=== PATIENT | male | born 1990 | race African-American/Black ===

== ENCOUNTER 2017-05-11 01:22 | Inpatient (IN) | payer OTHER ==
--- NOTE | 2017-05-11 02:20 | PDOC ---
History of Present Illness - General History Source: Patient Exam Limitations: No Limitations - History of Present Illness Initial Comments: 05/11/17 04:13 Patient is a 26 year old male with a significant past medical history of Cystic Fibrosis who presents to the ED with complaints of persistent cough that began 4 days ago. Patient reports persistent cough beginning last suddenly while at home. He reports persistent cough began increasing in intensity with each passing day, until Thursday afternoon. Patient states cough is productive with brown/ yellowish sputum. Patient reports taking taking steroids for Cystic Fibrosis. As per patient's , patient had 104 degree fever yesterday afternoon and was given Tylenol with minimal relief. Denies chest pain. Denies chills. Denies contact with sick individual, out of state travel. Denies any other symptoms. Allergies: Blueberry allergy, Shellfish allergy Social history: Lives with . No smoking. No alcohol. No illicit drugs. Surgical history: None PMD: None. 05/11/17 04:16 <Celso Martino - Last Filed: 05/11/17 04:16> <Akin Echeverria - Last Filed: 05/11/17 05:11> - General Chief Complaint: Respiratory Stated Complaint: SORE THROAT, WEAKNESS, COUGH Time Seen by Provider: 05/11/17 01:39 Past History <Celso Martino - Last Filed: 05/11/17 04:16> - Surgical History Appendectomy: Yes - Suicide/Smoking/Psychosocial Hx Smoking Status: Yes Smoking History: Never smoked Number of Cigarettes Smoked Daily: 4 'Breaking Loose' booklet given: 09/30/12 Hx Alcohol Use: No Drug/Substance Use Hx: Yes Substance Use Type: Marijuana Hx Substance Use Treatment: No <Akin Echeverria - Last Filed: 05/11/17 05:11> - Past Medical History Allergies/Adverse Reactions: Allergies Allergy/AdvReac Type Severity Reaction Status Date / Time blueberry [Blueberry] Allergy Swelling Verified 05/11/17 02:07 shellfish derived Allergy Swelling Verified 05/11/17 02:07 Home Medications: Ambulatory Orders NK [No Known Home Medication] 05/11/17 Review of Systems - Review of Systems Able to Perform ROS?: Yes Comments:: 05/11/17 04:13 GENERAL/CONSTITUTIONAL: +Fever No chills. No weakness. HEAD, EYES, EARS, NOSE AND THROAT: No change in vision. No ear pain or discharge. No sore throat. CARDIOVASCULAR: No chest pain or shortness of breath. RESPIRATORY: +Cough. No wheezing, or hemoptysis. GASTROINTESTINAL: No nausea, vomiting, diarrhea or constipation. GENITOURINARY: No dysuria, frequency, or change in urination. MUSCULOSKELETAL: No joint or muscle swelling or pain. No neck or back pain. SKIN: No rash NEUROLOGIC: No headache, vertigo, loss of consciousness, or change in strength/ sensation. ENDOCRINE: No increased thirst. No abnormal weight change. HEMATOLOGIC/LYMPHATIC: No anemia, easy bleeding, or history of blood clots. ALLERGIC/IMMUNOLOGIC: No hives or skin allergy. All Other Systems: Reviewed and Negative <Celso Martino - Last Filed: 05/11/17 04:16> *Physical Exam - Vital Signs Last Vital Signs Temp Pulse Resp BP Pulse Ox 98.9 F 74 20 107/54 98 05/11/17 02:07 05/11/17 02:07 05/11/17 02:07 05/11/17 02:07 05/11/17 02:07 - Physical Exam Comments: 05/11/17 04:14 GENERAL: +Appears ill. Awake, alert, and fully oriented, in no acute distress HEAD: No signs of trauma EYES: PERRLA, EOMI, sclera anicteric, conjunctiva clear ENT: Auricles normal inspection, hearing grossly normal, nares patent, oropharynx clear without exudates. Moist mucosa NECK: Normal ROM, supple, no lymphadenopathy, JVD, or masses LUNGS: Breath sounds equal, clear to auscultation bilaterally. No wheezes, and no crackles HEART: Regular rate and rhythm, normal S1 and S2, no murmurs, rubs or gallops ABDOMEN: Soft, nontender, normoactive bowel sounds. No guarding, no rebound. No masses EXTREMITIES: Normal range of motion, no edema. No clubbing or cyanosis. No cords, erythema, or tenderness NEUROLOGICAL: Cranial nerves II through XII grossly intact. Normal speech, SKIN: Warm, Dry, normal turgor, no rashes or lesions noted. <Celso Martino - Last Filed: 05/11/17 04:16> - Vital Signs Last Vital Signs Temp Pulse Resp BP Pulse Ox 98.9 F 74 20 107/54 98 05/11/17 02:07 05/11/17 02:07 05/11/17 02:07 05/11/17 02:07 05/11/17 02:07 <Akin Echeverria - Last Filed: 05/11/17 05:11> ED Treatment Course - Medications Given in the ED: ED Medications Discontinued Medications Generic Name Dose Route Start Last Admin Trade Name Sudhir PRN Reason Stop Dose Admin Albuterol Sulfate 2 amp 05/11/17 03:14 05/11/17 04:11 Ventolin 0.083% Nebulizer Soln - NEB 05/11/17 03:15 2 amp ONCE ONE Administration Albuterol/Ipratropium 1 amp 05/11/17 03:14 05/11/17 04:02 Duoneb - NEB 05/11/17 03:15 1 amp ONCE ONE Administration Ceftriaxone Sodium 1 gm/ 50 mls @ 100 mls/hr 05/11/17 02:34 05/11/17 04:11 Dextrose IVPB 05/11/17 03:03 100 mls/hr ONCE ONE Administration Methylprednisolone Sodium Succinate 125 mg 05/11/17 02:34 05/11/17 04:11 Solu-Medrol - IVPUSH 05/11/17 02:35 125 mg ONCE ONE Administration <Celso Martino - Last Filed: 05/11/17 04:16> - LABORATORY CBC & Chemistry Diagram: 05/11/17 03:56 05/11/17 03:56 <Akin Echeverria - Last Filed: 05/11/17 05:11> *DC/Admit/Observation/Transfer - Attestations Scribe Attestion: 05/11/17 04:14 Documentation prepared by Celso Martino, acting as medical insurance verifier for Akin Echeverria MD/DO. <Celso Martino - Last Filed: 05/11/17 04:16> - Discharge Dispostion Admit: Yes - Attestations Physician Attestion: 05/11/17 02:20 I, Dr. Akin Echeverria, attest that this document has been prepared under my direction and personally reviewed by me in its entirety. I further attest, that it accurately reflects all work, treatment, procedures and medical decision -making performed by me. <Akin Echeverria - Last Filed: 05/11/17 05:11> Diagnosis at time of Disposition: Cystic fibrosis Pneumonia Qualifiers: Pneumonia type: due to unspecified organism Laterality: left Lung location: lower lobe of lung Qualified Code(s): J18.1 - Lobar pneumonia, unspecified organism - Discharge Dispostion Condition at time of disposition: Improved
[2017-05-11] MEDS ORDERED: AZITHROMYCIN IVPB 500 MG in DEXTROSE 5%-WATER - 250 ML IVPB ONE (02:34)
[2017-05-11] MEDS ORDERED: methylPREDNISolone NA SUCC 125 MG/2 ML VIAL IVPUSH ONE (02:34)
[2017-05-11] MEDS ORDERED: CEFTRIAXONE 1 GM in DEXTROSE 5%-WATER - 50 ML IVPB ONE (02:34)
[2017-05-11 03:04] VITALS: BMI 22.9
[2017-05-11] MEDS ORDERED: ALBUTEROL SO4 2.5/IPRATROPIUM 0.5 INH SOL 3 ML VIAL.NEB. NEB ONE (03:14)
[2017-05-11] MEDS ORDERED: ALBUTEROL SO4 0.083% IH SOL 2.5 MG/3 ML VIAL.NEB. NEB ONE ×2 (03:14→04:05)
[2017-05-11] MEDS ORDERED: AZITHROMYCIN IVPB 250 ML IVPB ONE (04:05)
[2017-05-11] MEDS ORDERED: CEFTRIAXONE 1 GM/50 ML BAG ONE (04:05)
[2017-05-11] MEDS ORDERED: methylPREDNISolone NA SUCC 125 MG/2 ML VIAL ONE (04:05)
[2017-05-11 04:27] LABS: BASOPHIL 0.5 % (0-2.0); EOSINOPHIL 5.9 % (0-4.5); MCH 29.2 pg (25.7-33.7); MCHC 34.2 g/dl (32.0-35.9); MEAN CELL VOLUME 85.3 fl (80-96); PLATELET COUNT 244 K/MM3 (134-434); RDW 13.1 % (11.9-15.9); WHITE BLOOD COUNT 8.3 K/mm3 (4.0-10.0)
[2017-05-11 04:40] LABS: INR 1.19 (0.82-1.09); PROTHROMBIN TIME (PATIENT) 13.5 SEC (9.98-11.88)
[2017-05-11 04:52] LABS: ALBUMIN 3.8 g/dl (3.4-5.0); ANION GAP 7 (8-16); BILIRUBIN,TOTAL 0.4 mg/dL (0.2-1.0); CALCIUM 8.2 mg/dL (8.5-10.1); CO2 27 mmol/L (21-32); GLUCOSE,RANDOM 89 mg/dL (74-106); SGPT/ALT 30 U/L (12-78)
[2017-05-11 04:53] LABS: ALK PHOS 75 U/L (45-117); TOT PROT 7.2 g/dl (6.4-8.2)
[2017-05-11 04:55] LABS: SGOT/AST 36 U/L (15-37)
--- NOTE | 2017-05-11 05:08 | PN ---
Teaching Attending Note Name of Resident: Pratibha Carlos ATTENDING PHYSICIAN STATEMENT I saw and evaluated the patient. I reviewed the resident's note and discussed the case with the resident. I agree with the resident's findings and plan as documented. SUBJECTIVE: 26 M with pmhx. of CF (not on any treatment), who presents with s 4 day history of Cystic Fibrosis. Pt.s reported him with productive sputum, and bringing up yellow thick sputum. States he felt febrile at home and his temp was 104. Notes chills and fevers. No chest pain or pressure. No shortness of breath. No N/V?D. States he does not follow with a hand i tube bender and was NOT on any recent steriods. OBJECTIVE: Physical: VS: Vital Signs Period Temp Pulse Resp BP Sys/Jonas Pulse Ox Last 24 Hr 98.4 F-98.9 F 74 20 107/54 98 GEN: NAD, AA0X3, resting in bed HEENT: NCAT, PERRL, throat without erythema or exudates CARD: RRR S1, S2 RES: CTAB ABD: BX4, NTD to palparion EXR:- C/C/E CBCD WBC 8.3 K/mm3 (4.0-10.0) 05/11/17 03:56 RBC 4.98 M/mm3 (4.00-5.60) 05/11/17 03:56 Hgb 14.5 GM/dL (11.7-16.9) 05/11/17 03:56 Hct 42.5 % (35.4-49) 05/11/17 03:56 MCV 85.3 fl (80-96) 05/11/17 03:56 MCHC 34.2 g/dl (32.0-35.9) 05/11/17 03:56 RDW 13.1 % (11.9-15.9) 05/11/17 03:56 Plt Count 244 K/MM3 (134-434) D 05/11/17 03:56 MPV 8.0 fl (7.5-11.1) 05/11/17 03:56 CMP Sodium 134 mmol/L (136-145) L 05/11/17 03:56 Potassium 4.5 mmol/L (3.5-5.1) 05/11/17 03:56 Chloride 100 mmol/L (98-107) 05/11/17 03:56 Carbon Dioxide 27 mmol/L (21-32) 05/11/17 03:56 Anion Gap 7 (8-16) L 05/11/17 03:56 BUN 10 mg/dL (7-18) 05/11/17 03:56 Creatinine 1.0 mg/dL (0.7-1.3) 05/11/17 03:56 Creat Clearance w eGFR > 60 (>60) 05/11/17 03:56 Random Glucose 89 mg/dL (74-106) 05/11/17 03:56 Calcium 8.2 mg/dL (8.5-10.1) L 05/11/17 03:56 Total Bilirubin 0.4 mg/dL (0.2-1.0) D 05/11/17 03:56 AST 36 U/L (15-37) 05/11/17 03:56 ALT 30 U/L (12-78) D 05/11/17 03:56 Alkaline Phosphatase 75 U/L (45-117) D 05/11/17 03:56 Total Protein 7.2 g/dl (6.4-8.2) 05/11/17 03:56 Albumin 3.8 g/dl (3.4-5.0) 05/11/17 03:56 CXT- [place] JOSSELYN ASSESSMENT AND PLAN: 26 M with hx. of CF who presents with productive cough and fever being admitted for possible pneumonia 1.) Pneumonia? - Possible early pneumonia - Sputum cx - Urine AGS - C/W Ceftriaxone and Azithro - [place] cx 2.) Cystic Fibrosis - Not on any medication - Pulm consult for medical optimization 3.) Dvt Ppx - Ambulate - SCDs Place in Obs
--- NOTE | 2017-05-11 05:53 | HP ---
CHIEF COMPLAINT: Cough x4 days PCP: HISTORY OF PRESENT ILLNESS: A 26 yo M with a significant PMHx of Cystic Fibrosis presenting with productive cough x 4 days. Cough is productive of non- bloody yellowish-brown sputum. No associated SOB or chest pain. Patient was noted to have a Tmax of 104 relieved by motrin and theraflu. There was associated sore throat, loss of appetite, and one episode of non bloody diarrhea. There is however no dysphagia, no n/v, no constipation. Patient has also had generalized malaise and joint weakness that has not been relieved by the pain meds. Patient usually has exacerbations of CF in the winter, with his last episode 2 years ago. Patient assumed he was having flu-like symptoms and presented today because the symptoms were not improving. There is no history of sick contacts and patient has not received flu vaccine or pneumovax. Patient admits to smoking 3 cigarettes a day. ER course was notable for: (1) CBC, PT, INR, CMP-wnl (2) Na-134 (3) Lactic acid, UA--ve 4) CXR- yet to be read, likely hilar cavitory lesions on L with possible consolidation 5) Ceftriaxone 1g, Azithromycin iv 500mg, given-ED 6) Duonebs, ventolin-given Recent Travel: PAST MEDICAL HISTORY: Recurrent PNA PAST SURGICAL HISTORY: Appendectomy Nasal polypectomy Social History: Smokin/day (Black and mild) Alcohol:2 beers/ week Drugs: None Family History: Allergies blueberry [Blueberry] Allergy (Verified 05/11/17 02:07) Swelling shellfish derived Allergy (Verified 05/11/17 02:07) Swelling HOME MEDICATIONS: Home Medications Medication Instructions Recorded NK [No Known Home Medication] 05/11/17 REVIEW OF SYSTEMS CONSTITUTIONAL: Absent: fever+, chills, diaphoresis, generalized weakness, malaise, loss of appetite, weight change HEENT: Absent: rhinorrhea, nasal congestion, throat pain, throat swelling, difficulty swallowing, mouth swelling, ear pain, eye pain, visual changes CARDIOVASCULAR: Absent: chest pain, syncope, palpitations, irregular heart rate, lightheadedness , peripheral edema RESPIRATORY: Absent: cough+, shortness of breath, dyspnea with exertion, orthopnea, wheezing , stridor, hemoptysis GASTROINTESTINAL: Absent: abdominal pain, abdominal distension, nausea, vomiting, diarrhea, constipation, melena, hematochezia GENITOURINARY: Absent: dysuria, frequency, urgency, hesitancy, hematuria, flank pain, genital pain MUSCULOSKELETAL: Absent: myalgia+, arthralgia+, joint swelling, back pain, neck pain SKIN: Absent: rash, itching, pallor HEMATOLOGIC/IMMUNOLOGIC: Absent: easy bleeding, easy bruising, lymphadenopathy, frequent infections ENDOCRINE: Absent: unexplained weight gain, unexplained weight loss, heat intolerance, cold intolerance NEUROLOGIC: Absent: headache, focal weakness or paresthesias, dizziness, unsteady gait, seizure, mental status changes, bladder or bowel incontinence PSYCHIATRIC: Absent: anxiety, depression, suicidal or homicidal ideation, hallucinations. PHYSICAL EXAMINATION Vital Signs - 24 hr 05/11/17 05/11/17 02:07 05:13 Temperature 98.9 F 98.4 F Pulse Rate 74 Respiratory 20 Rate Blood Pressure 107/54 O2 Sat by Pulse 98 Oximetry (%) GENERAL: Awake, alert, and fully oriented, in no acute distress. HEAD: Normal with no signs of trauma. EYES: Pupils equal, round and reactive to light, extraocular movements intact, sclera anicteric, conjunctiva clear. EARS, NOSE, THROAT: Ears normal, nares patent, hyperemic oropharynx clear without exudates. Moist mucous membranes. NECK: Normal range of motion, supple, no lymphadenopathy, no JVD. LUNGS: Breath sounds reduced, coarse creps bilaterally. No wheezes, and no crackles. HEART: Regular rate and rhythm, normal S1 and S2 without murmur, rub or gallop. ABDOMEN: Soft, nontender, not distended, normoactive bowel sounds MUSCULOSKELETAL: Normal range of motion at all joints. UPPER EXTREMITIES: 2+ pulses, warm, well-perfused. No cyanosis. clubbing+. No peripheral edema. LOWER EXTREMITIES: 2+ pulses, warm, well-perfused. No calf tenderness. No peripheral edema. NEUROLOGICAL: Cranial nerves II-XII intact. Normal speech. gait not observed. PSYCHIATRIC: Cooperative. Good eye contact. Appropriate mood and affect. SKIN: Warm, dry, normal turgor, no rashes or lesions noted, normal capillary refill. Laboratory Results - last 24 hr 05/11/17 05/11/17 05/11/17 03:56 03:56 03:56 WBC 8.3 RBC 4.98 Hgb 14.5 Hct 42.5 MCV 85.3 MCH 29.2 MCHC 34.2 RDW 13.1 Plt Count 244 D MPV 8.0 Neutrophils % 58.0 Lymphocytes % 24.5 D Monocytes % 11.1 H D Eosinophils % 5.9 H Basophils % 0.5 PT with INR 13.50 H INR 1.19 H Sodium 134 L Potassium 4.5 Chloride 100 Carbon Dioxide 27 Anion Gap 7 L BUN 10 Creatinine 1.0 Creat Clearance w eGFR > 60 Random Glucose 89 Lactic Acid Calcium 8.2 L Total Bilirubin 0.4 D AST 36 ALT 30 D Alkaline Phosphatase 75 D Total Protein 7.2 Albumin 3.8 05/11/17 03:56 WBC RBC Hgb Hct MCV MCH MCHC RDW Plt Count MPV Neutrophils % Lymphocytes % Monocytes % Eosinophils % Basophils % PT with INR INR Sodium Potassium Chloride Carbon Dioxide Anion Gap BUN Creatinine Creat Clearance w eGFR Random Glucose Lactic Acid 0.8 Calcium Total Bilirubin AST ALT Alkaline Phosphatase Total Protein Albumin ASSESSMENT/PLAN: A 26 yo M with significant PMHx of Cystic Fibrosis ( on no home meds) presenting with hx of productive cough x 4 days and fever. #CAP In background of CF, not on home meds, last exacerbation 2 years ago CXR- likely infiltrates Ceftriaxone 1g given-ED iv normal saline 100/hr Tabs tylenol 650mg Q6H Ceftriaxone 1g-given Azithromycin iv 500mg, given-ED Duonebs-given ventolin-given Pulm consult- Dr Hackett Iv Normal saline @100ml/hr Flu vaccine im Pneumovax 13 im #Cystic fibrosis Not on home meds Pulm consult #FEN IV fluid normal saline Monitor lytes Low sodium diet #Prophylaxis DVT Early ambulation #Dispo Obs Med Surg Visit type - Emergency Visit Emergency Visit: Yes Care time: The patient presented to the Emergency Department on the above date and was hospitalized for further evaluation of their emergent condition. - New Patient This patient is new to me today: Yes Date on this admission: 05/11/17 - Critical Care Critical Care patient: No
[2017-05-11] MEDS ORDERED: ACETAMINOPHEN 325 MG TABLET (FP) PO PRN (06:29)
[2017-05-11] MEDS ORDERED: SODIUM CHLORIDE 1,000 ML IV SCH (06:30)
[2017-05-11] MEDS ORDERED: PNEUMOC 13-VAL CONJ-DIP CRM/PF 0.5 ML DISP.SYRIN IM ONE (06:35)
[2017-05-11] MEDS ORDERED: FLU VACCINE QUAD 60 MCG/0.5 ML (MDV 17-18) IM ONE (06:36)
[2017-05-11 08:43] LABS: PHOSPHOROUS 4.3 mg/dL (2.5-4.9)
--- NOTE | 2017-05-11 12:31 | PN ---
Physical Exam: SUBJECTIVE: Patient seen and examined. Diagnosed with cystic fibrosis at [facility] at age 17. Followed for a time with Dr. Bradshaw in [place], last saw her 4 years ago. Does not have a PCP. Used to use a nebulizer but it was lost. Has a percussion vest that he uses occasionally when he develops cough/URI/pneumonia. Smokes 3 cigarettes daily. Presently complaining of bilateral chest tightness on deep inspiration. OBJECTIVE: Vital Signs Period Temp Pulse Resp BP Sys/Jonas Pulse Ox Last 24 Hr 97.7 F-98.9 F 53-82 18-20 107-115/50-67 98-98 GENERAL: The patient is awake, alert, and fully oriented, in no acute distress. LUNGS: Dimninished sounds on the right. No wheezes, no crackles, no accessory muscle use. HEART: Regular rate and rhythm, S1, S2 without murmur, rub or gallop. ABDOMEN: Soft, nontender, nondistended, normoactive bowel sounds, no guarding, no rebound EXTREMITIES: 2+ pulses, warm, well-perfused, no edema. NEUROLOGICAL: Cranial nerves II through XII grossly intact. Normal speech, gait not observed. Laboratory Results - last 24 hr 05/11/17 05/11/17 05/11/17 03:56 03:56 03:56 WBC 8.3 RBC 4.98 Hgb 14.5 Hct 42.5 MCV 85.3 MCH 29.2 MCHC 34.2 RDW 13.1 Plt Count 244 D MPV 8.0 Neutrophils % 58.0 Lymphocytes % 24.5 D Monocytes % 11.1 H D Eosinophils % 5.9 H Basophils % 0.5 PT with INR 13.50 H INR 1.19 H Sodium 134 L Potassium 4.5 Chloride 100 Carbon Dioxide 27 Anion Gap 7 L BUN 10 Creatinine 1.0 Creat Clearance w eGFR > 60 Random Glucose 89 Lactic Acid Calcium 8.2 L Phosphorus 4.3 Magnesium 2.0 Total Bilirubin 0.4 D AST 36 ALT 30 D Alkaline Phosphatase 75 D Total Protein 7.2 Albumin 3.8 05/11/17 05/11/17 03:56 04:00 WBC RBC Hgb Hct MCV MCH MCHC RDW Plt Count MPV Neutrophils % Lymphocytes % Monocytes % Eosinophils % Basophils % PT with INR INR Sodium Potassium Chloride Carbon Dioxide Anion Gap BUN Creatinine Creat Clearance w eGFR Random Glucose Lactic Acid 0.8 Calcium Phosphorus Cancelled Magnesium Cancelled Total Bilirubin AST ALT Alkaline Phosphatase Total Protein Albumin Active Medications Generic Name Dose Route Start Last Admin Trade Name Freq PRN Reason Stop Dose Admin Sodium Chloride 1,000 mls @ 100 mls/hr 05/11/17 06:30 05/11/17 10:11 Normal Saline - IV 100 mls/hr ASDIR RADHA Administration ASSESSMENT/PLAN 26 year-old male with a PMH significant for cystic fibrosis, admitted for LLL pneumonia. Community-acquired pneumonia --05/11 CT chest: multifocal centrilobular groundglass and solid nodular opacities in the LLL --seen by pulmonology who diagnosed pneumonia --received ceftriaxone x 1 and azithro x 1 in ED, will start levofloxacin x 9 days --flu and pneumonia vaccines given --duonebs PRN Cystic fibrosis --stable; CT shows interval resolution of a mucoid impaction seen on 09/23/12 Visit type - Emergency Visit Emergency Visit: Yes ED Registration Date: 05/11/17 Care time: The patient presented to the Emergency Department on the above date and was hospitalized for further evaluation of their emergent condition. - New Patient This patient is new to me today: Yes Date on this admission: 05/12/17 - Critical Care Critical Care patient: No
--- NOTE | 2017-05-11 14:07 | CON.PULM ---
Consult Consult Specialty:: Pulmonology Reason for Consultation:: Cystic Fibrosis/ PNA - History of Present Illness Chief Complaint: Cough, Fever History of Present Illness: The patient is a 26 yo m w/ PMH cystic fibrosis who comes into the ED c/o cough and fever for the past 4 days. Patient states that the symptoms began with a sore throat and progressed to a cough productive of non-bloody yellowish-brown sputum. Patient also endorses a temperature to 104 relieved by motrin and theraflu. Patient states that whenever he gets sick like this, he ends up having pneumonia and needs admission, so he went to the ED for evaluation. Last hospitalization was for pneumonia 2 years ago. Patient is an active smoker of 3- 4 cigarettes per day for approximately 10 years. He does not have a PCP or a edge burnisher who he regularly follows up with. - Alcohol/Substance Use Hx Alcohol Use: No - Smoking History Smoking history: Never smoked Aproximately how many cigarettes per day: 4 Home Medications - Allergies Allergies/Adverse Reactions: Allergies Allergy/AdvReac Type Severity Reaction Status Date / Time blueberry [Blueberry] Allergy Swelling Verified 05/11/17 02:07 shellfish derived Allergy Swelling Verified 05/11/17 02:07 - Home Medications Home Medications: Ambulatory Orders NK [No Known Home Medication] 05/11/17 Review of Systems - Review of Systems Constitutional: reports: Night Sweats. denies: Chills, Fever HENT: denies: Ear Pain, Nasal Congestion, Throat Pain Cardiovascular: denies: Chest Pain, Edema, Palpitations, Shortness of Breath Respiratory: reports: Cough. denies: Hemoptysis, SOB Physical Exam Vital Sings: Vital Signs Temperature 97.7 F 05/11/17 09:45 Pulse Rate 53 L 05/11/17 09:45 Respiratory Rate 18 05/11/17 09:45 Blood Pressure 112/50 05/11/17 09:45 O2 Sat by Pulse Oximetry (%) 98 05/11/17 05:59 Constitutional: Yes: Well Nourished, No Distress, Calm HENT: Yes: Atraumatic, Normocephalic Neck: Yes: Supple, Trachea Midline Cardiovascular: Yes: Regular Rate and Rhythm, S1, S2. No: JVD, Gallop, Murmur, Rub, S3, S4 Respiratory: Yes: Regular, Other (decreased breath sounds on the right). No: Rales, Rhonchi, Wheezes Labs: CBC, BMP 05/11/17 03:56 05/11/17 03:56 Assessment/Plan Patient is a 26 yo m w/ PMH Cystic fibrosis comes into the ED c/o cough, sore throat and fever for 4 days. Patient has been afebrile during his admission here and states that his breathing is improved. CXR improved compared to previous admission. CT chest shows likely infectious bronchiolitis and chronic bronchiectasis. #infectious bronchiolitis -patient afebrile -c/w current abx -f/u cultures -send sputum culture #Chronic bronchiectasis -nebs as needed -Steroids not indicated at this time. #Cystic fibrosis -patient will need outpatient followup for chronic management -PFTs as outpatient
--- NOTE | 2017-05-11 14:09 | CON.PULM ---
Consult Consult Specialty:: PULMONARY Referred by:: Dr. Colon Reason for Consultation:: pneumonia - History of Present Illness Chief Complaint: fevers History of Present Illness: 26yo male with h/o cystic fibrosis diagnosed at age 17 who presents with fevers and chills x 4 days. He reports a cough productive of thick yellow sputum. No shortness of breath or chest pain. No sick contacts. Does not get the flu vaccine. No nausea, vomiting or diarrhea. He does not take any medications ever since moving from [place]. He was on Advair, albuterol, nebulizers and used his Smart Vest. He smokes 3 cigarettes/day. - History Source History Provided By: Patient, Medical Record Limitations to Obtaining History: No Limitations - Past Medical History Pulmonary: Yes: Other (cystic fibrosis) - Alcohol/Substance Use Hx Alcohol Use: No - Smoking History Smoking history: Never smoked Aproximately how many cigarettes per day: 4 Home Medications - Allergies Allergies/Adverse Reactions: Allergies Allergy/AdvReac Type Severity Reaction Status Date / Time blueberry [Blueberry] Allergy Swelling Verified 05/11/17 02:07 shellfish derived Allergy Swelling Verified 05/11/17 02:07 - Home Medications Home Medications: Ambulatory Orders NK [No Known Home Medication] 05/11/17 Review of Systems - Review of Systems Constitutional: reports: Chills, Fever, Night Sweats, Weakness Eyes: denies: Recent Change in Vision HENT: denies: Nasal Congestion, Throat Pain Neck: denies: Stiffness, Tenderness Cardiovascular: denies: Chest Pain, Palpitations, Shortness of Breath Respiratory: reports: Cough. denies: Hemoptysis, SOB on Exertion, Wheezing Gastrointestinal: denies: Abdominal Pain, Nausea, Vomiting Genitourinary: denies: Dysuria, Hematuria Neurological: denies: Dizziness, Headache Endocrine: denies: Unexplained Weight Loss Physical Exam Vital Sings: Vital Signs Temperature 97.7 F 05/11/17 09:45 Pulse Rate 53 L 05/11/17 09:45 Respiratory Rate 18 05/11/17 09:45 Blood Pressure 112/50 05/11/17 09:45 O2 Sat by Pulse Oximetry (%) 98 05/11/17 05:59 Constitutional: Yes: Calm Eyes: Yes: Conjunctiva Clear, EOM Intact HENT: Yes: Atraumatic, Normocephalic Neck: Yes: Supple, Trachea Midline Cardiovascular: Yes: Regular Rate and Rhythm Respiratory: Yes: Regular, CTA Bilaterally ...Clubbing: No Gastrointestinal: Yes: Normal Bowel Sounds, Soft. No: Tenderness Edema: No Neurological: Yes: Alert, Oriented Labs: CBC, BMP 05/11/17 03:56 05/11/17 03:56 Imaging - Results Cat Scan: Report Reviewed, Image Reviewed (LLL infiltrates, JOSSELYN bronchiectasis) Assessment/Plan LLL Pneumonia Bronchiectasis Cystic Fibrosis - agree with antibiotics - f/u cultures, send sputum - inhaled bronchodilators as needed - can defer steroids at this time - outpt PFTs and f/u - DVT prophylaxis - if remains afebrile, can change antibiotics to PO in AM and d/c home from pulmonary standpoint Thank you for this consult Tiago Tabares MD
[2017-05-11] MEDS ORDERED: ALBUTEROL SO4 2.5/IPRATROPIUM 0.5 INH SOL 3 ML VIAL.NEB. NEB SCH (15:15)
[2017-05-11] MEDS: ALBUTEROL SO4 2.5/IPRATROPIUM 0.5 INH SOL 3 ML VIAL.NEB. NEB SCH (17:12)
[2017-05-12] MEDS: ALBUTEROL SO4 2.5/IPRATROPIUM 0.5 INH SOL 3 ML VIAL.NEB. NEB SCH ×2 (00:05→07:04)
[2017-05-12] MEDS ORDERED: PT OWN MED DRAWER 7, Y5N ONE (05:56)
[2017-05-12] MEDS ORDERED: LEVOFLOXACIN PO SCH (06:00)
[2017-05-12] MEDS ORDERED: LEVOFLOXACIN 750 MG TABLET PO SCH (06:00)
[2017-05-12] MEDS ORDERED: LEVOFLOXACIN 250 MG TABLET (FP) ONE (06:01)
[2017-05-12] MEDS ORDERED: LEVOFLOXACIN 500 MG TABLET (FP) ONE (06:01)
[2017-05-12] MEDS ORDERED: AMOX TR/POT CLAV 875MG/125MG TABLETS (FP) PO SCH (08:00)
--- NOTE | 2017-05-12 09:38 | DS ---
Physical Exam: SUBJECTIVE: Patient seen and examined. Cough and chest tightness improved since starting antibiotics. OBJECTIVE: Vital Signs Period Temp Pulse Resp BP Sys/Jonas Pulse Ox Last 24 Hr 97.7 F-98.1 F 44-65 18-18 103-126/43-68 95-100 PHYSICAL EXAM GENERAL: The patient is awake, alert, and fully oriented, in no acute distress. LUNGS: Dimninished sounds on the right. No wheezes, no crackles, no accessory muscle use. HEART: Regular rate and rhythm, S1, S2 without murmur, rub or gallop. ABDOMEN: Soft, nontender, nondistended, normoactive bowel sounds, no guarding, no rebound EXTREMITIES: 2+ pulses, warm, well-perfused, no edema. NEUROLOGICAL: Cranial nerves II through XII grossly intact. Normal speech, gait not observed. CBCD WBC 8.3 K/mm3 (4.0-10.0) 05/11/17 03:56 RBC 4.98 M/mm3 (4.00-5.60) 05/11/17 03:56 Hgb 14.5 GM/dL (11.7-16.9) 05/11/17 03:56 Hct 42.5 % (35.4-49) 05/11/17 03:56 MCV 85.3 fl (80-96) 05/11/17 03:56 MCHC 34.2 g/dl (32.0-35.9) 05/11/17 03:56 RDW 13.1 % (11.9-15.9) 05/11/17 03:56 Plt Count 244 K/MM3 (134-434) D 05/11/17 03:56 MPV 8.0 fl (7.5-11.1) 05/11/17 03:56 CMP Sodium 134 mmol/L (136-145) L 05/11/17 03:56 Potassium 4.5 mmol/L (3.5-5.1) 05/11/17 03:56 Chloride 100 mmol/L (98-107) 05/11/17 03:56 Carbon Dioxide 27 mmol/L (21-32) 05/11/17 03:56 Anion Gap 7 (8-16) L 05/11/17 03:56 BUN 10 mg/dL (7-18) 05/11/17 03:56 Creatinine 1.0 mg/dL (0.7-1.3) 05/11/17 03:56 Creat Clearance w eGFR > 60 (>60) 05/11/17 03:56 Calcium 8.2 mg/dL (8.5-10.1) L 05/11/17 03:56 Total Bilirubin 0.4 mg/dL (0.2-1.0) D 05/11/17 03:56 AST 36 U/L (15-37) 05/11/17 03:56 ALT 30 U/L (12-78) D 05/11/17 03:56 Alkaline Phosphatase 75 U/L (45-117) D 05/11/17 03:56 Total Protein 7.2 g/dl (6.4-8.2) 05/11/17 03:56 Albumin 3.8 g/dl (3.4-5.0) 05/11/17 03:56 HOSPITAL COURSE: Date of Admission:05/11/17 Date of Discharge: 05/12/17 26 year-old male with a PMH significant for cystic fibrosis, admitted for LLL pneumonia. Community-acquired pneumonia --05/11 CT chest: multifocal centrilobular groundglass and solid nodular opacities in the LLL --seen by pulmonology who diagnosed pneumonia --received ceftriaxone x 1 and azithro x 1 in ED, levofloxacin x 1 dose, continue levofloxacin x 8 days --flu and pneumonia vaccines given --duonebs PRN Cystic fibrosis --stable; CT shows interval resolution of a mucoid impaction seen on 09/23/12 Minutes to complete discharge: 35 Discharge Summary Reason For Visit: PNEUMONIA, CYSTIC FIBROSIS Current Active Problems Cystic fibrosis (Acute) Pneumonia (Acute) Condition: Improved - Instructions Diet, Activity, Other Instructions: Four prescriptions have been sent to your pharmacy: 1. Levofloxacin: take 3 pills (750mg) for 8 days; avoid heavy lifting, running, impact sports or activities while on this medication 2. Duoneb solution 3. Nebulizer with mask and tubing 4. Nicoderm patches As we discussed, you are strongly encouraged to follow up at the [facility] supervised by Dr. Murphy. The contact information is enclosed in this discharge packet. Please call today to make an appointment. Return to the emergency department for any new or worsening symptoms. Referrals: José Miguel Murphy MD [Staff Physician] - 2 Weeks Disposition: HOME - Home Medications Comprehensive Discharge Medication List: Ambulatory Orders Albuterol 2.5/Ipratropium 0.5 [Duoneb -] 1 amp NEB QIDR PRN #1 box 05/12/17 Levofloxacin [Levaquin -] 750 mg PO DAILY 8 Days #24 tablet 05/12/17 Nebulizer Accessories [A.i.r.s. Nebulizer] 1 each QID PRN #1 kit 05/12/17 Nebulizer/Compressor [[employer] Choice Nebulizer] 1 each QID PRN #1 each Nicotine Patch [Nicoderm Patch -] 1 patch TD DAILY #30 patch 05/12/17 This patient is new to me today: No Emergency Visit: Yes ED Registration Date: 05/11/17 Care time: The patient presented to the Emergency Department on the above date and was hospitalized for further evaluation of their emergent condition. Critical Care patient: No - Discharge Referral Referred to [facility] No
--- NOTE | 2017-05-12 09:49 | PN ---
Progress Note (short form) - Note Progress Note: Feels better today. Some congested cough. No hemoptysis. Afebrile. Intake & Output 05/09/17 05/10/17 05/11/17 05/12/17 23:59 23:59 23:59 23:59 Intake Total 1200 0 Balance 1200 0 Weight 160 lb Last Vital Signs Temp Pulse Resp BP Pulse Ox 98.1 F 44 L 18 103/43 95 05/12/17 05:27 05/12/17 05:27 05/12/17 05:27 05/12/17 05:27 05/12/17 05:48 Active Medications Albuterol/Ipratropium (Duoneb -) 1 amp NEB QIDR [facility] Stop: 05/12/17 12:01 Last Admin: 05/12/17 07:04 Dose: 1 amp Levofloxacin 250 mg/ (Levofloxacin 500 mg) 750 mg PO DAILY@0600 [facility] Last Admin: 05/12/17 06:04 Dose: 750 mg Constitutional: Yes: NAD Eyes: Yes: Conjunctiva Clear, EOM Intact HENT: Yes: Atraumatic, Normocephalic Neck: Yes: Supple, Trachea Midline Cardiovascular: Yes: Regular Rate and Rhythm Respiratory: Yes: Basilar rhonchi ...Clubbing: No Gastrointestinal: Yes: Normal Bowel Sounds, Soft. No: Tenderness Edema: No Neurological: Yes: Alert, Oriented Labs: Assessment/Plan LLL Pneumonia Bronchiectasis Cystic Fibrosis Levaquin 750mg OD BD TX PRN Outpatient PFTs once stable D/C home Dr Pichardo
[2017-05-12 11:04] VITALS: BP 120/67; PULSE 65; TEMP 97.9
== END 2017-05-12 11:02 | disposition home or self-care (01) | DRG 131 ==
LOC: JER 01:22 → JERBED 05:11 → J7W 07:46
PROVIDERS: ADMIT Internal Medicine; ATTEND Nurse Practitioner Acute Care
DX: J18.1 Lobar pneumonia, unspecified organism (principal); E84.9 Cystic fibrosis, unspecified; F17.210 Nicotine dependence, cigarettes, uncomplicated; J47.9 Bronchiectasis, uncomplicated
CPT/HCPCS: 36415; 71010-TC; 71250-TC; 80053; 83605; 83735; 84100; 85025; 85610; 87040; 87070; 87205; 87633; 87804; 87899; 94640; 99285-25